=== PATIENT | male | born 1995 | race Caucasian/White ===

== ENCOUNTER 2019-03-30 05:58 | Day surgery (SDC) | payer OTHER ==
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
[2019-03-30] VITALS (13 sets, daily range): BP systolic 124–181; BP diastolic 76–105; PULSE 81–118; RESP 16–29; Ht 180.3 cm; Wt 103.4 kg
[~2019-03-30] VITALS: Ht 180.3 cm; Wt 103.4 kg
[2019-03-30] MEDS ORDERED: POLYMYXIN/BACITRACIN 1L IRRIG ONE (06:57)
[2019-03-30] MEDS ORDERED: CEFAZOLIN 1 GM INJ ONE (07:03)
[2019-03-30] MEDS ORDERED: MIDAZOLAM 1 MG/ML 2 ML INJ ONE (07:03)
[2019-03-30] MEDS ORDERED: PROPOFOL 20 ML ONE (07:03)
[2019-03-30] MEDS ORDERED: ROCURONIUM 50 MG INJ ONE ×3 (07:03→09:09)
--- NOTE | 2019-03-30 07:45 | PREAC ---
Date/Time of Note Date/Time of Note DATE: 03/30/19 TIME: 07:40 Anesthesia Eval and Record Evaluation Time Pre-Procedure Interview DATE: 03/30/19 TIME: 07:40 Age 23 Sex male NPO: 8 hrs Preoperative diagnosis ACL Tear Planned procedure ACL Repair Past Medical History Past Medical History: None Surgery & Anesthesia Issues No known issue Meds Anticoagulation: No Beta Emmy within 24 hr: No Reason Beta Emmy not given: Other (Noyneeded) No Active Prescriptions or Reported Meds Meds reviewed: No Allergies Coded Allergies: amoxicillin (Verified Allergy, Unknown, HIVES, 03/30/19) Allergies Reviewed: Yes Labs/Studies Labs Reviewed: Reviewed by anesthesiologist test: N/A Pre-procedure Exam Last vitals Vital Signs Date Temp Pulse Resp B/P (MAP) Pulse Ox O2 O2 Flow FiO2 Time Delivery Rate 03/30/19 98.1 81 16 124/76 97 Room Air 07:08 (92) Airway: Adequate mouth opening, Adequate thyromental dist Mallampati: Mallampati II Teeth: Normal Lung: Normal Heart: Normal ASA Physical Status ASA physical status: 2 Emergency: None Planned Anesthetic General/MAC: ETT Pre-operative Attestations Prior to commencing anesthesia and surgery, the patient was re-evaluated, there was verification of: *The patient's identity *The results of appropriate recent lab work and preoperative vital signs *The above evaluation not changing prior to induction *Anesthetic plan, risk benefits, alternative and complications discussed with pa tient/family; questions answered; patient/family understands, accepts and wishes to proceed. JULISA COOK MD March 30, 2019 07:45
[2019-03-30] MEDS ORDERED: CLINDAMYCIN 600 MG/D5W (PMX) 50 ML IVPB ONE (07:57)
[2019-03-30] MEDS ORDERED: EPINEPHrine 1 MG/ML 30 ML INJ ONE (08:36)
[2019-03-30] MEDS ORDERED: morphine SULFATE/PF (10 MG/10 ML) INJ ONE (10:13)
[2019-03-30] MEDS ORDERED: NEOSTIGMINE 3 MG/3 ML SYRINGE ONE (10:26)
[2019-03-30] MEDS ORDERED: GLYCOPYRROLATE 0.4 MG INJ ONE (10:26)
[2019-03-30] MEDS ORDERED: KETOROLAC 30 MG INJ IV PRN (10:30)
[2019-03-30] MEDS ORDERED: HYDROmorphONE 1 MG/5 ML IV SYRINGE IV PRN (10:30)
[2019-03-30] MEDS ORDERED: ONDANSETRON 4 MG INJ IV PRN (10:30)
[2019-03-30] MEDS ORDERED: OXYCODONE/ACETAMINOPHEN (5/325) TAB PO PRN (10:30)
[2019-03-30] MEDS ORDERED: MEPERIDINE 25 MG INJ IV PRN (10:30)
--- NOTE | 2019-03-30 10:43 | PAC ---
Date/Time of Note Date/Time of Note DATE: 03/30/19 TIME: 10:42 Post-Anesthesia Notes Post-Anesthesia Note Last documented vital signs Vital Signs Date Temp Pulse Resp B/P (MAP) Pulse Ox O2 O2 Flow FiO2 Time Delivery Rate 03/30/19 98.1 81 16 124/76 97 Room Air 07:08 (92) Activity: WNL Respiratory function: WNL Cardiovascular function: WNL Mental status: Baseline Pain reasonably controlled: Yes Hydration appropriate: Yes Nausea/Vomiting absent: Yes JULISA COOK MD March 30, 2019 10:43
--- NOTE | 2019-03-30 10:59 | SIPON ---
Date/Time of Note Date/Time of Note DATE: 03/30/19 TIME: 10:47 Operative Report Preoperative Diagnosis Right knee ACL, PCL ,meniscal tear and synovitis Postoperative Diagnosis ACL tear , minimal PCL tear, torn lateral meniscus, synovitis, loose body right knee Operation/Procedure Performed Diagnostic scope, EU A, Synovectomy, partial lateral meniscotomy, lateral meniscal repair, ACL repair and application of Wilkinson dressing plus post op ACL brace Surgeon Mani Israel MD syrup mixer [facility] Anesthesia: general Estimated blood loss: minimal Transfusion Required none Specimen none Grafts/Implants none Complications none MANI ISRAEL MD March 30, 2019 10:57
[2019-03-30] MEDS ORDERED: HYDROCODONE/APAP (5/325) TAB PO PRN (11:00)
--- NOTE | 2019-03-31 07:20 | OPR ---
DATE OF OPERATION: 03/30/2019 PREOPERATIVE DIAGNOSIS: Right knee ACL, PCL tear, meniscal tear, synovitis, loose bodies in the barajas lla, partial tear of the patellar tendon. POSTOPERATIVE DIAGNOSIS: ACL proximal disruption and torn lateral meniscus. Marked synovitis, loose bodies and tear in the PCL and healing tear of the patellar tendon. OPERATION PERFORMED: Diagnostic arthroscopy, examination under general anesthesia, partial lateral m eniscectomy, lateral meniscal repair, total synovectomy and ACL repair, application of Wilkinson dressing . ANESTHESIA: General. ANESTHESIOLOGIST: Dr. Sandoval. BLEEDING: Minimal. DESCRIPTION OF PROCEDURE: Patient was transferred to the operating room and placed on the operating table in supine position. General anesthesia was induced as patient was ALLERGIC TO and was gi yesenia clindamycin. Then right knee was prepped and draped in the routine fashion after induction of ge neral anesthesia, the right knee prepped and draped in the routine fashion. Landmarks were marked to regular to anterior portal, 1 medial and 1 lateral to patellar tendon, operative arthroscopy was com menced. Examination general anesthesia indicated positive Tam. No posterior drawer sign startin g from suprapatellar pouch. There was mild synovitis present and there was synovial effusion present . DRAINS: There was minor spot with free chondromalacia of the patella was focal point. Otherwise, re mainder patellofemoral surface was good. There was absence of loose body in medial and lateral gutte r. Patella was engaging 40 degrees in trochlear groove. Going to the medial compartment, the menisc us was intact. Tricortical neck shows fibrillation. Going to lateral compartment in the figure 4, t here was marked synovitis. There were torn anterior tear in the central section and also perip alyssa. Therefore, trimming of the central section of the middle third and anterior third was done and then there is stabilize the middle margin and also meniscal mender was used to repair th e anterior section. Marked synovitis was taken care of by coagulation by Arthrocare Bovie. There wa s a big loose body which was removed by . Intercondylar notch there was marked synovitis being present and was taken care of by coagulation and shaver removal. The bundle distally was intact, pr oximally was disrupted and it was somewhat scarred down to the posterior of the condyle. There was s carification of the PCL on the lateral side of the medial femoral condyle, but however, the bundle wa s intact to its attachment to the femur. Therefore, after total synovectomy and being accessed to th e ACL we used FiberWire, double row and we used the anatomical site of the ACL on the medial side of the femoral condyle and drilling was done. Tapping was almost performed. We next used lock 4.75. T he suture was passed through the SwiveLock and the ankle was put into the and put the knee into semi-extension and sutures were tightened around the swivel lock, and it was hammered into place and we obtained tight nice ACL and Tam became negative. Six sutures were removed . Knee was with copious saline irrigation. Portal was closed with benzoin and skin laith and 1 0 mg Duramorph mixed with 10 mL of injectable saline was injected into the knee. Sterile Wilkinson dress ing was applied. A postop knee brace was applied. General anesthesia was stopped. Patient was take n to recovery room in good and stable condition. Dictated By: MANI AYON/THIAGO Conf#: [id number] DID#: [id number]
== END 2019-03-30 12:53 | disposition home or self-care (01) ==
LOC: SDS 05:58
PROVIDERS: ATTEND Internal Medicine Endocrinology, Diabetes & Metabolism
DX: S83.511D Sprain of anterior cruciate ligament of right knee, subsequent encounter (principal); S83.271D Complex tear of lateral meniscus, current injury, right knee, subsequent encounter; X58.XXXD Exposure to other specified factors, subsequent encounter
CPT/HCPCS: 29881; 29888; C1713; J0171; J1170; J1885; J2250; J2274; J2710; J3010; Z7512; Z7610; J0690